=== PATIENT | male | born 1960 | race African-American/Black ===

== ENCOUNTER 2017-04-06 15:03 | Emergency (ER) | payer MEDICAID, OTHER ==
[~2017-04-06] VITALS: Ht 172.7 cm; Wt 97.0 kg
[~2017-04-06 15:03] MED LIST: ALLO300T2 PO; AMLO10TA4; COG2; GLIP5TAB12; HAL5; HYDR-3513 PO; HYDROCHLOROTHIAZIDE PO; LABE200T28 PO; LISI-604; LOSA50TA3; MIRT30TA; SIMV20TA6; ZET10 PO
[2017-04-06 16:25] LABS: BASOPHILS % 1.1 % (0.0-2.0); EOSINOPHILS % 1.5 % (0.0-5.0); HEMATOCRIT. 43.3 % (42.0-52.0); HEMOGLOBIN. 14.2 g/dL (14.0-18.0); LYMPHOCYTES % 39.5 % (20.0-50.0); MEAN CORPUSCULAR HEMOGLOBIN 26.9 pg (28.0-32.0); MEAN CORPUSCULAR VOLUME 82.1 fL (80.0-94.0); MEAN PLATELET VOLUME 8.6 fl (7.4-10.4); MONOCYTES % 7.6 % (2.0-8.0); NEUTROPHILS % 50.3 % (40.0-76.0); PLATELET 202 x1000/uL (130-400); RED BLOOD CELL COUNT 5.27 mill/uL (4.7-6.1); RED CELL DISTRIBUTION WIDTH 14.6 % (11.6-14.6)
[2017-04-06 16:34] LABS: CARBON DIOXIDE 25 mEq/L (21-32); CHLORIDE 109 mEq/L (98-107)
[2017-04-06 16:37] LABS: ETHANOL BLOOD < 10 mg/dL
[2017-04-06 16:42] LABS: TROPONIN I 0.05 ng/mL (0.00-0.04)
[2017-04-06] MEDS ORDERED: HYDRALAZINE 20MG/ML VIAL IV ONE (19:15)
[2017-04-06 20:32] VITALS: BP 206/103
== END 2017-04-06 20:35 | disposition left against medical advice (07) ==
LOC: ER 15:03 → EDBEDREQTM 19:05 → EDBEDREQ 19:05 → ENRESERV 20:22 → CANRESERV 20:22 → ER 20:35 → CANBEDREQ 22:34
DX: I10 Essential (primary) hypertension (principal); G45.9 Transient cerebral ischemic attack, unspecified; R47.81 Slurred speech; F20.9 Schizophrenia, unspecified; E78.00 Pure hypercholesterolemia, unspecified; E11.9 Type 2 diabetes mellitus without complications; F17.200 Nicotine dependence, unspecified, uncomplicated; Z86.73 Personal history of transient ischemic attack (TIA), and cerebral infarction without residual deficits
CPT/HCPCS: 36415; 70450; 71010; 80053; 82962; 84484; 85025; 85610; 93005; 96374; 99285; G0482; J0360; Z7610

== ENCOUNTER 2018-07-03 19:31 | Inpatient (IN) | payer MEDICAID, OTHER ==
[~2018-07-03] VITALS: Ht 175.3 cm; Wt 104.8 kg
[2018-07-03] MEDS ORDERED: MORPHINE SULFATE 4 MG/ML CPJ (NOT FOR IM USE) IV STA (20:32)
[2018-07-03] MEDS ORDERED: SODIUM CHLORIDE 0.9% 1,000 ML IV ONE (20:32)
[2018-07-03] MEDS ORDERED: MORPHINE SULFATE 10 MG/ML CPJ IV STA (20:38)
[2018-07-03] MEDS ORDERED: LABETALOL 5MG/ML SYR 20 MG/4 ML SYRINGE IV ONE ×2 (20:45→22:30)
[2018-07-03] MEDS ORDERED: LABETALOL HCL 20MG/4ML CARPUJECT IV NR (20:45)
[2018-07-03 21:42] LABS: BASOPHILS % 0.8 % (0.0-2.0); CHLORIDE 104 mEq/L (98-107); EOSINOPHILS % 1.5 % (0.0-5.0); HEMATOCRIT. 38.9 % (42.0-52.0); HEMOGLOBIN. 12.8 g/dL (14.0-18.0); MEAN CORPUSCULAR HEMOGLOBIN 27.3 pg (28.0-32.0); MEAN PLATELET VOLUME 9.1 fl (7.4-10.4); NEUTROPHILS % 44.7 % (40.0-76.0); PLATELET 239 x1000/uL (130-400); RED BLOOD CELL COUNT 4.68 mill/uL (4.7-6.1); RED CELL DISTRIBUTION WIDTH 14.8 % (11.6-14.6)
[2018-07-03 21:44] LABS: PROTHROMBIN TIME 9.7 sec (9.1-11.1)
[2018-07-03] MEDS ORDERED: ASPIRIN 81MG TABLET PO NR (22:30)
[2018-07-04] VITALS (15 sets, daily range): BP systolic 91–197; BP diastolic 58–183
[2018-07-04] MEDS ORDERED: HYDR-2510 PO (01:43)
[2018-07-04] MEDS ORDERED: HYDR100T26 PO (01:43)
[2018-07-04] MEDS ORDERED: DEXTROSE 50% WATER 50ML SYRINGE IV PRN (02:00)
[2018-07-04] MEDS: HYDROCODONE/ACETAMINOPHEN 5/325MG TABLET PO PRN ×2 (02:27→08:01)
[2018-07-04] MEDS: HYDRALAZINE HCL 100MG TABLET PO SCH ×3 (06:00→21:36)
[2018-07-04] MEDS: CLONIDINE 0.2MG TABLET PO PRN ×2 (07:50→08:02)
[2018-07-04] MEDS: BLOOD SUGAR DIAGNOSTIC STRIP TEST SCH ×4 (07:54→21:37)
[2018-07-04] MEDS: METOPROLOL TARTRATE 50MG TABLET PO SCH ×2 (08:02→21:25)
[2018-07-04] MEDS: AMLODIPINE 10MG TABLET PO SCH (08:02)
[2018-07-04] MEDS: INSULIN LISPRO 100 UNITS/ML SUBCUT SCH ×4 (08:06→21:41)
[2018-07-04 09:05] LABS: CLARITY URINE CLEAR (CLEAR); COLOR URINE YELLOW (YELLOW); KETONES URINE NEGATIVE (NEGATIVE); LEUKOCYTE ESTERASE URINE NEGATIVE (NEGATIVE); NITRITE URINE NEGATIVE (NEGATIVE); OCCULT BLOOD URINE NEGATIVE (NEGATIVE); PROTEIN URINE 2+ (NEGATIVE); SPECIFIC GRAVITY URINE 1.014 (1.005-1.030); UROBILINOGEN URINE 0.2 E.U./dL (0.2-1.0)
[2018-07-04 09:22] LABS: *AMPHETAMINES SCREEN URINE NEGATIVE (NEGATIVE); *BARBITURATES SCREEN URINE NEGATIVE (NEGATIVE); *BENZODIAZEPINES SCREEN URINE NEGATIVE (NEGATIVE); *COCAINE SCREEN URINE NEGATIVE (NEGATIVE); METHADONE URINE SCREEN NEGATIVE (NEGATIVE); OPIATES URINE SCREEN PRESUMTIVE POSITIVE (NEGATIVE)
[2018-07-04 09:23] LABS: CANNABINOID URINE SCREEN NEGATIVE (NEGATIVE); PHENCYCLIDINE URINE SCREEN NEGATIVE (NEGATIVE)
[2018-07-04] MEDS: SODIUM CHLORIDE 0.45% 1,000 ML IV SCH (11:00)
[2018-07-04] MEDS: INSULIN GLARGINE UD 100 UNITS/ML SYR SUBCUT SCH ×2 (11:12→21:37)
[2018-07-04 11:13] LABS: BASOPHILS % 0.5 % (0.0-2.0); EOSINOPHILS % 3.1 % (0.0-5.0); HEMATOCRIT. 35.3 % (42.0-52.0); HEMOGLOBIN. 11.4 g/dL (14.0-18.0); LYMPHOCYTES % 48.7 % (20.0-50.0); MEAN CORPUSCULAR HEMOGLOBIN 26.8 pg (28.0-32.0); MEAN CORPUSCULAR VOLUME 82.9 fL (80.0-94.0); MEAN PLATELET VOLUME 8.5 fl (7.4-10.4); MONOCYTES % 7.9 % (2.0-8.0); NEUTROPHILS % 39.8 % (40.0-76.0); PLATELET 194 x1000/uL (130-400); RED BLOOD CELL COUNT 4.26 mill/uL (4.7-6.1); RED CELL DISTRIBUTION WIDTH 15.1 % (11.6-14.6)
[2018-07-04 11:24] LABS: CHLORIDE 105 mEq/L (98-107)
[2018-07-04] MEDS: ENOXAPARIN 40MG/0.4ML SYR SUBCUT SCH (12:15)
[2018-07-04] MEDS: NICOTINE 7MG PATCH TD SCH (18:04)
[2018-07-04] MEDS: ATORVASTATIN CALCIUM 40MG TABLET PO SCH (21:23)
[2018-07-04] MEDS: MIRTAZAPINE 30MG TABLET PO SCH (21:23)
[2018-07-04] MEDS: HALOPERIDOL 5MG TABLET PO SCH (21:25)
[2018-07-05] VITALS (19 sets, daily range): BP systolic 47–168; BP diastolic 14–108
[2018-07-05] MEDS: SODIUM CHLORIDE 0.45% 1,000 ML IV SCH (00:20)
[2018-07-05] MEDS: HYDROCODONE/ACETAMINOPHEN 5/325MG TABLET PO PRN (02:33)
[2018-07-05] MEDS ORDERED: METOPROLOL TARTRATE 50MG TABLET PO SCH (04:43)
[2018-07-05] MEDS: HYDRALAZINE HCL 100MG TABLET PO SCH ×3 (06:42→21:35)
[2018-07-05] MEDS: BLOOD SUGAR DIAGNOSTIC STRIP TEST SCH ×4 (07:30→21:35)
[2018-07-05 07:35] LABS: BASOPHILS % 0.4 % (0.0-2.0); EOSINOPHILS % 2.1 % (0.0-5.0); HEMOGLOBIN. 11.5 g/dL (14.0-18.0); MEAN CORPUSCULAR HEMOGLOBIN 27.4 pg (28.0-32.0); MONOCYTES % 7.7 % (2.0-8.0); NEUTROPHILS % 53.8 % (40.0-76.0); PLATELET 206 x1000/uL (130-400); RED BLOOD CELL COUNT 4.22 mill/uL (4.7-6.1); RED CELL DISTRIBUTION WIDTH 14.9 % (11.6-14.6)
[2018-07-05] MEDS: INSULIN LISPRO 100 UNITS/ML SUBCUT SCH ×4 (09:04→21:28)
[2018-07-05] MEDS: GLIPIZIDE 10MG TABLET PO SCH (09:07)
[2018-07-05] MEDS: METOPROLOL TARTRATE 50MG TABLET PO SCH ×2 (10:37→21:35)
[2018-07-05] MEDS: AMLODIPINE 10MG TABLET PO SCH (10:39)
[2018-07-05] MEDS: NICOTINE 7MG PATCH TD SCH (10:39)
[2018-07-05] MEDS: ENOXAPARIN 40MG/0.4ML SYR SUBCUT SCH (10:40)
[2018-07-05] MEDS: INSULIN GLARGINE UD 100 UNITS/ML SYR SUBCUT SCH ×2 (10:42→21:27)
[2018-07-05] MEDS: CLONIDINE 0.2MG TABLET PO PRN (18:41)
[2018-07-05] MEDS: ATORVASTATIN CALCIUM 40MG TABLET PO SCH (21:33)
[2018-07-05] MEDS: MIRTAZAPINE 30MG TABLET PO SCH (21:34)
[2018-07-05] MEDS: HALOPERIDOL 5MG TABLET PO SCH (21:34)
[2018-07-06] VITALS: BP 130/59
[2018-07-06 02:00] VITALS: BP 90/48
[2018-07-06 04:00] VITALS: BP 131/65
[2018-07-06 06:00] VITALS: BP 126/23
[2018-07-06] MEDS: HYDRALAZINE HCL 100MG TABLET PO SCH (06:33)
[2018-07-06] MEDS: GLIPIZIDE 10MG TABLET PO SCH (06:33)
[2018-07-06] MEDS: SODIUM CHLORIDE 0.45% 1,000 ML IV SCH (06:40)
[2018-07-06 07:11] LABS: BASOPHILS % 0.5 % (0.0-2.0); EOSINOPHILS % 3.2 % (0.0-5.0); HEMATOCRIT. 35.7 % (42.0-52.0); HEMOGLOBIN. 11.5 g/dL (14.0-18.0); LYMPHOCYTES % 50.1 % (20.0-50.0); MEAN CORPUSCULAR HEMOGLOBIN 26.9 pg (28.0-32.0); MEAN CORPUSCULAR VOLUME 83.8 fL (80.0-94.0); MEAN PLATELET VOLUME 8.9 fl (7.4-10.4); MONOCYTES % 8.7 % (2.0-8.0); NEUTROPHILS % 37.5 % (40.0-76.0); PLATELET 196 x1000/uL (130-400); RED BLOOD CELL COUNT 4.25 mill/uL (4.7-6.1); RED CELL DISTRIBUTION WIDTH 14.8 % (11.6-14.6)
[2018-07-06 08:00] VITALS: BP 128/59
[2018-07-06] MEDS: INSULIN LISPRO 100 UNITS/ML SUBCUT SCH (08:00)
[2018-07-06] MEDS: BLOOD SUGAR DIAGNOSTIC STRIP TEST SCH (08:18)
[2018-07-06] MEDS: METOPROLOL TARTRATE 50MG TABLET PO SCH (08:58)
[2018-07-06] MEDS: AMLODIPINE 10MG TABLET PO SCH (08:59)
[2018-07-06] MEDS: NICOTINE 7MG PATCH TD SCH (09:00)
[2018-07-06 10:00] VITALS: BP 145/89
== END 2018-07-06 10:55 | disposition left against medical advice (07) | DRG 249 ==
LOC: ER 19:31 → 5EST 22:22 → EDBEDREQ 22:24 → EDBEDREQSVC 22:24 → EDBEDREQTM 22:24 → ENRESERV 23:17
PROVIDERS: ADMIT Internal Medicine; ATTEND Internal Medicine
DX: A08.4 Viral intestinal infection, unspecified (principal); N17.9 Acute kidney failure, unspecified; E11.22 Type 2 diabetes mellitus with diabetic chronic kidney disease; E11.65 Type 2 diabetes mellitus with hyperglycemia; I16.1 Hypertensive emergency; K76.0 Fatty (change of) liver, not elsewhere classified; D64.9 Anemia, unspecified; E66.9 Obesity, unspecified; F17.200 Nicotine dependence, unspecified, uncomplicated; I12.9 Hypertensive chronic kidney disease with stage 1 through stage 4 chronic kidney disease, or unspecified chronic kidney disease; E78.5 Hyperlipidemia, unspecified; N18.5 Chronic kidney disease, stage 5; K57.90 Diverticulosis of intestine, part unspecified, without perforation or abscess without bleeding; Z86.73 Personal history of transient ischemic attack (TIA), and cerebral infarction without residual deficits; Z91.14 Patient's other noncompliance with medication regimen; Z91.19 Patient's noncompliance with other medical treatment and regimen; Z68.34 Body mass index [BMI] 34.0-34.9, adult
CPT/HCPCS: 36415; 74176; 76770; 80048; 80305; 82962; 83036; 83605; 84484; 93005; 93970; 96374; 96375; 97116; 97162; 99285; J1630; J1650; J1815; J2270; J3490; J7030

== ENCOUNTER 2020-03-16 14:23 | Emergency (ER) | payer MEDICAID ==
[~2020-03-16] VITALS: Ht 172.7 cm; Wt 91.0 kg
[~2020-03-16 14:23] MED LIST changes: -ALLO300T2 PO; -AMLO10TA4; +HYDR-2510 PO; -HYDR-3513 PO; +HYDR100T26 PO; -HYDROCHLOROTHIAZIDE PO; -LABE200T28 PO; -LISI-604; -LOSA50TA3; +SIMV-43; -SIMV20TA6; -ZET10 PO
[2020-03-16] MEDS ORDERED: LABETALOL 5MG/ML SYR 20 MG/4 ML SYRINGE IV ONE (15:15)
[2020-03-16 15:40] LABS: BASOPHILS % 0.9 % (0.0-2.0); EOSINOPHILS % 2.5 % (0.0-5.0); HEMATOCRIT. 36.9 % (42.0-52.0); HEMOGLOBIN. 12.1 g/dL (14.0-18.0); LYMPHOCYTES % 32.5 % (20.0-50.0); MEAN CORPUSCULAR HEMOGLOBIN 27.5 pg (28.0-32.0); MEAN PLATELET VOLUME 7.8 fl (7.4-10.4); MONOCYTES % 8.8 % (2.0-8.0); NEUTROPHILS % 55.3 % (40.0-76.0); PLATELET 191 x1000/uL (130-400); RED CELL DISTRIBUTION WIDTH 14.7 % (11.6-14.6)
[2020-03-16 15:48] LABS: CHLORIDE 113 mEq/L (98-107)
[2020-03-16 15:49] LABS: PROTHROMBIN TIME 10.5 sec (9.6-11.0)
[2020-03-16 15:52] LABS: ETHANOL BLOOD < 10 mg/dL
[2020-03-16 15:53] LABS: PHOSPHORUS 4.8 mg/dL (2.5-4.9)
[2020-03-16] MEDS ORDERED: SODIUM BICARBONATE 8.4% 1 MEQ/ML 50ML SYR IV ONE (16:15)
[2020-03-16] MEDS ORDERED: FUROSEMIDE 20MG/2ML VIAL IVP ONE (16:15)
[2020-03-16] MEDS ORDERED: DIPHENHYDRAMINE 50MG/ML VIAL IV PRN (17:15)
[2020-03-16] MEDS ORDERED: GUAIFENESIN 200MG/10ML SUGAR FREE UDC PO PRN (17:15)
[2020-03-16] MEDS ORDERED: CLONIDINE 0.1MG TABLET PO PRN (17:15)
[2020-03-16] MEDS ORDERED: LORAZEPAM 2MG/ML CPJ IV PRN (17:15)
[2020-03-16] MEDS ORDERED: DOCUSATE SODIUM 100MG CAPSULE PO PRN (17:15)
[2020-03-16] MEDS ORDERED: ACETAMINOPHEN 325MG TABLET PO PRN (17:15)
[2020-03-16] MEDS ORDERED: ONDANSETRON HCL 4MG/2ML INJ IV PRN (17:15)
[2020-03-16] MEDS ORDERED: MAGNESIUM/ALUMINUM HYDROXIDE/SIMETHICONE 30ML UDC PO PRN (17:15)
[2020-03-16] MEDS ORDERED: IPRATROPIUM/ALBUTEROL 0.5-3(2.5)MG/3ML NEB HHN PRN (17:15)
[2020-03-16] MEDS ORDERED: HYDROCODONE/ACETAMINOPHEN 10/325MG TABLET PO PRN (17:25)
[2020-03-16] MEDS ORDERED: MORPHINE SULFATE 2 MG/ML CPJ (NOT FOR IM USE) IV PRN (17:25)
[2020-03-16] MEDS ORDERED: ENOXAPARIN 40MG/0.4ML SYR SUBCUT SCH (18:00)
[2020-03-16] MEDS ORDERED: HYDRALAZINE HCL 50MG TABLET PO SCH (18:00)
[2020-03-16 18:21] LABS: CLARITY URINE CLEAR (CLEAR); COLOR URINE YELLOW (YELLOW); KETONES URINE NEGATIVE (NEGATIVE); LEUKOCYTE ESTERASE URINE NEGATIVE (NEGATIVE); NITRITE URINE NEGATIVE (NEGATIVE); OCCULT BLOOD URINE NEGATIVE (NEGATIVE); PH URINE 6.5 (4.5-8.0); PROTEIN URINE 2+ (NEGATIVE); UROBILINOGEN URINE 0.2 E.U./dL (0.2-1.0)
[2020-03-16 18:22] VITALS: BP 208/149
[2020-03-16 18:46] LABS: *AMPHETAMINES SCREEN URINE NEGATIVE (NEGATIVE); *BARBITURATES SCREEN URINE NEGATIVE (NEGATIVE); *BENZODIAZEPINES SCREEN URINE NEGATIVE (NEGATIVE); *COCAINE SCREEN URINE NEGATIVE (NEGATIVE); CANNABINOID URINE SCREEN PRESUMTIVE POSITIVE (NEGATIVE); METHADONE URINE SCREEN NEGATIVE (NEGATIVE); OPIATES URINE SCREEN NEGATIVE (NEGATIVE); PHENCYCLIDINE URINE SCREEN NEGATIVE (NEGATIVE)
[2020-03-16] MEDS ORDERED: SODIUM CHLORIDE 0.9% INJ 3ML FLUSH IVF SCH (22:00)
== END 2020-03-16 18:23 | disposition left against medical advice (07) ==
LOC: ER 14:23 → EDBEDREQ 17:22 → ER 18:23 → CANBEDREQ 18:29
DX: I16.0 Hypertensive urgency (principal); I12.9 Hypertensive chronic kidney disease with stage 1 through stage 4 chronic kidney disease, or unspecified chronic kidney disease; N18.9 Chronic kidney disease, unspecified; E87.2 Acidosis; E78.5 Hyperlipidemia, unspecified; Z79.899 Other long term (current) drug therapy; Z86.73 Personal history of transient ischemic attack (TIA), and cerebral infarction without residual deficits
CPT/HCPCS: 36415; 71045; 80053; 80305; 80320; 81003; 83690; 83735; 83880; 84100; 84484; 85025; 85610; 93005; 96374; 96375; 99285; J1940; J3490; G0480

== ENCOUNTER 2021-09-09 12:06 | Emergency (ER) | payer MEDICAID ==
[~2021-09-09] VITALS: Ht 172.7 cm; Wt 91.0 kg
[~2021-09-09 12:06] MED LIST changes: -HYDR-2510 PO; +HYDR50TA PO; +MIRT-111; -MIRT30TA
[2021-09-09 13:25] LABS: HEMATOCRIT. 29.2 % (42.0-52.0); HEMOGLOBIN. 9.5 g/dL (14.0-18.0); LYMPHOCYTES % 27.9 % (20.0-50.0); MEAN CORPUSCULAR HEMOGLOBIN 27.6 pg (28.0-32.0); MEAN PLATELET VOLUME 9.1 fl (7.4-10.4); NEUTROPHILS % 60.1 % (40.0-76.0); PLATELET 249 x1000/uL (130-400); RED BLOOD CELL COUNT 3.43 mill/uL (4.7-6.1); RED CELL DISTRIBUTION WIDTH 14.9 % (11.6-14.6)
[2021-09-09] MEDS ORDERED: HYDRALAZINE 20MG/ML VIAL IV NR (14:00)
[2021-09-09 14:04] LABS: CHLORIDE 114 mEq/L (98-107)
[2021-09-09 15:00] VITALS: BP 239/134
== END 2021-09-09 15:53 | disposition left against medical advice (07) ==
LOC: ER 12:06 → CANBEDREQ 15:22 → ER 15:53
DX: I21.3 ST elevation (STEMI) myocardial infarction of unspecified site (principal); I10 Essential (primary) hypertension; E11.9 Type 2 diabetes mellitus without complications; E78.00 Pure hypercholesterolemia, unspecified; Z86.73 Personal history of transient ischemic attack (TIA), and cerebral infarction without residual deficits
CPT/HCPCS: 36415; 71045; 80053; 83880; 84484; 85025; 93005; 99291